=== PATIENT | female | born 1965 | race Caucasian/White ===

== ENCOUNTER 2019-02-21 20:16 | Emergency (ER) | payer BC ==
[2019-02-21 22:26] VITALS: BP 136/100
[2019-02-21] MEDS ORDERED: SULFAM/TRIM 800/160 Prepack 2 PO ONE (22:27)
--- NOTE | 2019-02-21 22:30 | ED Physician Documentation ---
PD HPI SKIN - Stated complaint Stated Complaint: LT LEG PX - Chief complaint Chief Complaint: Wound - History obtained from History obtained from: Patient, Friend - History of Present Illness Timing - onset: How many days ago (3) Timing - duration: Days (3) Timing - details: Gradual onset, Still present Location: [facility] Quality / character: Itchy, Burning, Discolored, Swelling. No: Draining Associated symptoms: N/V/D. No: Fever, Myalgias, Joint pain, Headache, Facial swelling, Dyspnea, Abd pain Contributing factors: Insect bite /sting Similar symptoms before: Has not had sx before Recently seen: Not recently seen - Additional information Additional information: Previously well 53-year-old female has traveled here from [place] and she had some what she thought were bug bites to the back of her right knee about a week ago and now she has developed some redness that is spreading under the skin on the back of her knee. This is happened over the day today. Review of Systems Constitutional: denies: Fever Eyes: denies: Decreased vision Ears: denies: Ear pain Nose: denies: Congestion Throat: denies: Sore throat Cardiac: denies: Chest pain / pressure, Palpitations Respiratory: denies: Dyspnea GI: reports: Nausea. denies: Vomiting, Diarrhea PD PAST MEDICAL HISTORY - Past Medical History Past Medical History: No Other Past Medical History: denies - Past Surgical History Past Surgical History: No - Present Medications Home Medications: Ambulatory Orders Medication Instructions Recorded Confirmed Loratadine [Claritin] 10 mg PO DAILY 02/21/19 02/21/19 Sulfamethoxazole/Trimethoprim 1 each PO BID #14 tablet 02/21/19 [Sulfamethoxazole-Tmp Ds Tablet] predniSONE [Prednisone] 40 mg PO DAILY #10 tablet 02/21/19 - Allergies Allergies/Adverse Reactions: Allergies Allergy/AdvReac Type Severity Reaction Status Date / Time bee venom protein (honey bee) Allergy Anaphylaxis Verified 02/21/19 20:25 Penicillins Allergy Rash Verified 02/21/19 20:25 shellfish derived Allergy Anaphylaxis Verified 02/21/19 20:25 amoxicillin AdvReac Unknown Verified 02/21/19 20:25 banana AdvReac Unknown Verified 02/21/19 20:26 erythromycin base AdvReac Nausea Verified 02/21/19 20:25 - Social History Does the pt smoke?: No Smoking Status: Never smoker Does the pt drink ETOH?: No Does the pt have substance abuse?: No - Immunizations Immunizations are current?: Yes PD ED PE NORMAL - Vitals Vital signs reviewed: Yes (hypesrtensive mild ) - General General: Alert and oriented X 3, No acute distress, Well developed/nourished - HEENT HEENT: Atraumatic, PERRL, EOMI - Respiratory Respiratory: No respiratory distress - Back Back: No CVA TTP - Derm Derm: Normal color, Warm and dry, No rash - Extremities Extremities: No deformity, No edema, Other (over the popletieal fossa there is a densley erythematous ridge of tissue in the crease and surrounding erythema consistent with cellulitis. The margnins are marked with a surgical marker. ) Results - Vitals Vitals: Vital Signs - 24 hr 02/21/19 02/21/19 20:19 22:26 Temperature 36.6 C Heart Rate 100 96 Respiratory 16 16 Rate Blood Pressure 143/96 H 136/100 H O2 Saturation 96 100 Oxygen O2 Source Room air PD MEDICAL DECISION MAKING - ED course Complexity details: considered differential, d/w patient, d/w family ED course: 53-year-old female with a infection to the back of her knee appears to have some cellulitis she may have some component of yeast as well. She will use some Monistat on it we will place her on some . Departure - Departure Disposition: 01 Home, Self Care Clinical Impression: Cellulitis Qualifiers: Site of cellulitis: extremity Site of cellulitis of extremity: lower extremity Laterality: right Qualified Code(s): L03.115 - Cellulitis of right lower limb Instructions: ED Infec Skin Cellulitis Follow-Up: [facility] [Provider Group] Prescriptions: predniSONE [Prednisone] 40 mg PO DAILY #10 tablet Sulfamethoxazole/Trimethoprim [Sulfamethoxazole-Tmp Ds Tablet] 1 each PO BID #14 tablet
[2019-02-21] MEDS ORDERED: predniSONE 20 MG TABLET PO STA (22:32)
== END 2019-02-21 22:45 | disposition home or self-care (01) ==
LOC: ED 20:16
DX: L03.115 Cellulitis of right lower limb (principal)
CPT/HCPCS: 99283; J7512